=== PATIENT | male | born 1960 | race Caucasian/White ===

== ENCOUNTER 2019-08-04 07:55 | Inpatient (IN) ==
--- NOTE | 2019-06-26 16:07 | PAT Medication Instructions ---
Medication Instructions Date of Service June 26, 2019 Home Medications aspirin 81 mg PO QPM 06/26/19 [History Confirmed 06/26/19] cranberry conc-ascorbic acid 1 cap PO QAM 06/26/19 [History Confirmed 06/26/19] multivitamin 1 tab PO QAM 06/26/19 [History Confirmed 06/26/19] niacin [Niaspan Extended-Release] 500 mg PO HS 06/26/19 [History Confirmed 06/26/19] olmesartan-hydrochlorothiazide [Benicar HCT] 1 tab PO QAM 06/26/19 [History Confirmed 06/26/19] omega 3-uml-oyq-fish oil 1 cap PO BID 06/26/19 [History Confirmed 06/26/19] rabeprazole [AcipHex] 20 mg PO QAM 06/26/19 [History Confirmed 06/26/19] simvastatin 20 mg PO PM 06/26/19 [History Confirmed 06/26/19] STOP taking 2 weeks before surgery (or as soon as possible if surgery is within 2 weeks) cranberry conc-ascorbic acid 1 cap PO QAM 06/26/19 [History Confirmed 06/26/19] omega 1-vwj-fwi-fish oil 1 cap PO BID 06/26/19 [History Confirmed 06/26/19] STOP taking 48 hours before surgery niacin [Niaspan Extended-Release] 500 mg PO HS 06/26/19 [History Confirmed 06/26/19] DO NOT take the morning of surgery multivitamin 1 tab PO QAM 06/26/19 [History Confirmed 06/26/19] olmesartan-hydrochlorothiazide [Benicar HCT] 1 tab PO QAM 06/26/19 [History Confirmed 06/26/19] Take morning of surgery With a small sip of water, OTHERWISE NOTHING TO EAT OR DRINK AFTER MIDNIGHT: rabeprazole [AcipHex] 20 mg PO QAM 06/26/19 [History Confirmed 06/26/19] Take evening before surgery aspirin 81 mg PO QPM 06/26/19 [History Confirmed 06/26/19] simvastatin 20 mg PO PM 06/26/19 [History Confirmed 06/26/19] Other Notes If you have any questions please call us at [phone] or [phone] or [phone] or [phone]
--- NOTE | 2019-06-29 12:42 | Anesthesiology Consultation ---
Date of Service June 29, 2019 Assessment & Plan Chart Review Chart Review: Pending: Refer to Additional Notes / Consult section and Patient seen in Pre Admission Testing Consults Requested cardiac ASA ASA3 Proposed Anesthesia Anesthesia Type: MAC Spinal Regional Regional Laterality: Left Site: Adductor Canal History Surgery Operation Date: 08/04/19 12:30 Proposed Procedures p Left Total Knee Arthroplasty - Stone Tran MD Height/Weight Height: 5 ft 10 in Weight: 110 kg Allergies Allergy/AdvReac Type Severity Reaction Status Date / Time No Known Allergies Allergy Verified 06/26/19 08:20 Medications Home Medications Medication Instructions Recorded Confirmed Last Taken aspirin 81 mg PO QPM 06/26/19 06/26/19 Unknown cranberry conc-ascorbic acid 1 cap PO QAM 06/26/19 06/26/19 Unknown multivitamin 1 tab PO QAM 06/26/19 06/26/19 Unknown niacin [Niaspan Extended-Release] 500 mg PO HS 06/26/19 06/26/19 Unknown olmesartan-hydrochlorothiazide 1 tab PO QAM 06/26/19 06/26/19 Unknown [Benicar HCT] omega 6-htt-aoj-fish oil 1 cap PO BID 06/26/19 06/26/19 Unknown rabeprazole [AcipHex] 20 mg PO QAM 06/26/19 06/26/19 Unknown simvastatin 20 mg PO PM 06/26/19 06/26/19 Unknown Exercise / Class Metabolic Activity III < 4 Walking/Shop/Light housework Past Family History Family History Father Family history of diabetes mellitus Past Surgical History Surgical History History of cardiac cath early - [facility] - no stents/angioplasty - does not follow w/ cardio History of colonoscopy History of esophagogastroduodenoscopy (EGD) History of tonsillectomy History of tooth extraction History of umbilical hernia repair Past Anesthesia History No Hx of Anesthesia Complications and No Family Hx of Anesthesia Complications History of PONV No Hx of PONV and No Hx of Motion Sickness Social History Smoking Status: Never smoker Do You Dip or Chew Tobacco: No (quit 1993) Hx Alcohol Use: No Hx Substance Use: No substance use type: does not use Physical Exam Vital Signs Last Vital Signs Temp 36.6 C 06/29/19 12:19 Pulse 67 06/29/19 12:19 Resp 20 06/29/19 12:19 BP 113/71 06/29/19 12:19 Pulse Ox 96 06/29/19 12:19 Constitutional + obese ENMT Mouth: no dentition abnormality Thyromental Distance: > or= 3.5 Finger Breadths Mallampati Class: II Neck normal visual inspection, trachea midline and + facial hair; neck extension not limited Respiratory normal respiratory effort Auscultation: lungs clear to auscultation bilaterally Cardiovascular Rate/Rhythm: regular rate and regular rhythm Heart Sounds: no murmur Vessels: no carotid bruit Musculoskeletal Spine: normal cervical ROM Neurologic moves all extremities Motor/Sensory: no sensory deficit Psychiatric Orientation: alert and oriented x 3
--- NOTE | 2019-06-29 13:15 | XRay Report ---
XR chest Pre-admission PA/Lat CLINICAL HISTORY: 59 years-old Male presenting with preoperative assessment. TECHNIQUE: PA and lateral views of the chest were obtained. COMPARISON: None. FINDINGS: Atherosclerosis of the aortic arch. Cardiac silhouette normal in size. Lungs and pleural spaces clear . Degenerative changes of the thoracic spine. Upper abdomen normal. IMPRESSION: 1. No acute cardiopulmonary disease. Electronically signed by: Dharmesh Hagen M.D. 06/29/2019 1:14 PM
[2019-06-29 14:34] LABS: Basophils # (auto) 0.03 K/uL (0-0.2); Basophils % (auto) 0.4 %; Eosinophils # (auto) 0.14 K/uL (0-0.5); Eosinophils % (auto) 1.9 %; Hematocrit (blood only) 45.1 % (42-52); Hemoglobin 15.9 g/dL (14.0-18.0); Immature Granulocytes # (auto) 0.01 K/uL (0.00-0.02); Immature Granulocytes % (auto) 0.1 %; Lymphocytes # (auto) 2.69 K/uL (1.2-3.4); Mean Corpuscular Hemoglobin 32.4 pg (25-34); Mean Corpuscular Hgb Conc 35.3 g/dL (32-36); Mean Platelet Volume 9.8 fL (7.4-10.4); Monocytes # (auto) 0.75 K/uL (0.11-0.59); Monocytes % (auto) 10.3 %; Neutrophils # (auto) 3.66 K/uL (1.4-6.5); Neutrophils % (auto) 50.3 %; Platelet Count 251 K/uL (130-400); RDW Coefficient of Variation 13.2 % (11.5-14.5); RDW Standard Deviation 44.1 fL (36.4-46.3); White Blood Count 7.28 K/uL (4.8-10.8)
[2019-06-29 14:54] LABS: BUN Creatinine Ratio 17.6 (10-20); Calcium 9.7 mg/dl (8.5-10.1); Creatinine Clr Calc Pharmacy 91.2 ml/min; Est GFR (Non-African American) 73.3; Potassium 4.6 mmol/L (3.5-5.1)
[2019-06-29 14:58] LABS: Partial Thromboplastin Time 26.9 Seconds (21.0-31.0); Prothrombin Time 10.3 Seconds (9.0-12.0)
--- NOTE | 2019-08-01 13:11 | History and Physical Report ---
DATE OF ADMISSION: 08/04/2019 CHIEF COMPLAINT: Persistent left knee pain and discomfort. HISTORY OF PRESENT ILLNESS: The patient is a 59-year-old gentleman who presents for surgical treatment of his left knee. He reports a 30-year history of gradually increasing left knee pain and discomfort. He has been through extensive conservative treatment over the years. He has had multiple steroid shots and viscosupplementation and some type of denervation procedure, which all really has not helped that recently. He has undergone a significant weight loss as well. He went from 310 pounds to 220 pounds. Despite this, he continues to be limited by left knee pain and discomfort. It is global pain. The more he walks, the more it hurts. He limps more as the day goes on. He has nighttime pain. He would like to have his left knee fixed. PAST MEDICAL HISTORY: 1. ME in 1998 without residual symptoms. 2. Hypertension. 3. Elevated cholesterol. 4. Obesity with BMI of 35. 5. Hiatal hernia. 6. Gastroesophageal reflux disease. PREVIOUS SURGERIES: Include a hernia surgery in 2009. ALLERGIES: None. CURRENT MEDICINES: 1. Atorvastatin 20 mg. 2. Aciphex 20 mg. 3. Benicar/hydrochlorothiazide 40/12.5 once a day. 4. Niacin 500 mg a day. 5. Fish oil. 6. Cranberry. 7. Aspirin 81 mg. 8. Multivitamin. SOCIAL HISTORY: A 59-year-old gentleman. He lives in [place]. He is . He does not smoke. FAMILY HISTORY: Noncontributory. REVIEW OF SYSTEMS: Negative for diabetes, neurologic problem, vascular problems, bleeding disorders. Denies any chest pain or shortness of breath. No history of DVT or PE. He did have an intentional weight loss. PHYSICAL EXAMINATION: GENERAL: Shows a pleasant, middle-aged male. Looks to be in pretty good health. HEENT: Benign. NECK: Supple. No lymphadenopathy. LUNGS: Clear to auscultation. HEART: Regular rate and rhythm. ABDOMEN: Soft, nontender, nondistended. EXTREMITIES: Grossly neurovascularly intact except as follows. Examination of the left leg reveals the patient ambulates with varus alignment to his knee. He has got varus thrust with weightbearing. He has got a small knee effusion. His knee is pretty stiff with about 5-10 degree flexion contracture, can only flex to about 100 degrees. There is no gross instability. No pain with hip motion. X-RAYS: X-rays of the left knee reviewed. It shows advanced left knee DJD. He has got near complete loss of his medial joint space. He has got some tibial femoral subluxation. He has got an uneven surface to his distal femur. ASSESSMENT: A 59-year-old gentleman with a long history of left knee pain and discomfort, unresponsive to conservative treatment. His knee is pretty stiff. He would like to have his left knee fixed. PLAN: We will take him to the Operating Room and do a left total knee replacement. The risks and benefits of this procedure were explained to the patient including but not limited to DVT, PE, , infection, neurological injury, vascular injury, bleeding problem, pain, limited range of motion, stiffness, failure to relieve symptoms, incomplete relief of symptoms, need for further surgery in future, fracture, leg length inequality, nerve palsy and need for revision surgery. The patient understands and desires to proceed. Informed consent was obtained. As far as discharge plans, he is planning to be discharged to home using [facility].
[~2019-08-04 07:55] MED LIST: ACETAMINOPHEN 500 MG TAB PO SCH; BUPIVACAINE 0.25% 30 ML VIAL ONE; BUPIVACAINE 0.5 % 5 MG/1 ML PF 10ML VIAL ONE; BUPIVACAINE LIPOSOME/PF 266 MG, BUPIVACAINE/EPINEPHRINE 50 ML, SODIUM CHLORIDE 0.9% 30 ... INFIL SCH; CEFAZOLIN 2000MG 2,000 MG/15 ML SYR IV SCH; FAMOTIDINE 20 MG TAB PO SCH; GABAPENTIN 600 MG DOSE PO SCH; LR 500ML BOLUS, THEN 15ML/HR IV SCH; LR 60ML/HR IV SCH; METOCLOPRAMIDE HCL 10 MG TABLET PO SCH; SCOPOLAMINE 1.5 MG TDSY TD SCH; TRANEXAMIC ACID 1,000 MG **IV Intra-op IV SCH
--- NOTE | 2019-08-04 08:44 | History & Physical Bridge Note ---
Date of Service August 04, 2019 History & Physical Bridge Note I have examined the patient, reviewed the History & Physical and in the interval since the performance of the History & Physical I have noted the following changes of clinical significance: no changes noted
[2019-08-04] MEDS ORDERED: TRANEXAMIC ACID / 0.7% NACL 1000MG/100ML BAG IV ONE (09:02)
[2019-08-04] MEDS ORDERED: fentaNYL citrate 100 MCG/2 ML VIAL ONE (09:05)
[2019-08-04] MEDS ORDERED: MIDAZOLAM HCL 1 MG/ML 2ML VIAL ONE (09:05)
[2019-08-04] MEDS ORDERED: ePHEDrine sulfate 50 MG/ML AMP IV PRN (09:24)
[2019-08-04] MEDS ORDERED: ATROPINE SULFATE 0.1 MG/ML 10ML SYR IV PRN (09:24)
[2019-08-04] MEDS ORDERED: ONDANSETRON INJ 2 MG/ML 2 ML VIAL IV PRN ×2 (09:24→14:04)
[2019-08-04] MEDS ORDERED: EPINEPHrine INJ 1 MG/ML AMP ONE (11:00)
[2019-08-04] MEDS ORDERED: BACITRACIN INJ 50,000 UNIT VIAL ONE (11:00)
[2019-08-04] MEDS ORDERED: BUPIVACAINE 0.25% 30 ML VIAL ONE (11:00)
[2019-08-04] MEDS ORDERED: SODIUM CHLORIDE 0.9% PF 50 ML VIAL ONE (11:00)
[2019-08-04] MEDS ORDERED: BUPIVACAINE LIPOSOME 1.3% 266 MG/20 ML VIAL ONE (11:00)
[2019-08-04] MEDS ORDERED: PROPOFOL IV EMULSION 10 MG/ML 20 ML VIAL IV ONE ×2 (12:20→12:34)
[2019-08-04] MEDS ORDERED: LIDOCAINE HCL 2% 2 ML VIAL/AMP(20MG/ML) INFIL ONE (12:20)
--- NOTE | 2019-08-04 13:05 | Post Operative Brief Note ---
PG Immediate Post Op with CF Date of Surgery August 04, 2019 Pre & Post Diagnosis Operation Date: 08/04/19 10:40 Pre-Op Diagnosis: Left knee degenerative joint disease Post-Op Diagnosis: Left knee degenerative joint disease I identified the patient and participated in the time-out.: Yes Procedure Operation Date: 08/04/19 10:40 Actual Procedures p Left Total Knee Arthroplasty, Cemented(Left) - Stone Tran MD Surgeon Stone Tran MD Business Support Assistant Soy, PAC Estimated Blood Loss 50 Findings Consistent with Post-Op Diagnosis Fluids 1300 cc Specimens Specimen Description: Permanent Specimen A: Left knee bone and tissue Drains Palomino Catheter Anesthesia Type Spinal MAC Complications none Disposition Accompanied Patient To Recovery: No Disposition: Recovery Room
--- NOTE | 2019-08-04 14:00 | XRay Report ---
LEFT KNEE 2 VIEWS History: Left total knee arthroplasty. Degenerative arthritis. Postop. FINDINGS: The patient is status post a left total knee arthroplasty. The hardware is intact. No fract ure or dislocation. Skin hilaria are in place. IMPRESSION: Left total knee arthroplasty. No evidence for hardware complication. ACT 112: Negative or not required by law. Electronically signed by: Inder Goodwin M.D. 08/04/2019 1:58 PM
[2019-08-04] MEDS ORDERED: HYDROmorphone INJ 0.5 MG/0.5 ML SYR IV PRN (14:04)
[2019-08-04] MEDS ORDERED: MAGNESIUM HYDROXIDE SUSP 30 ML UDC PO PRN (14:04)
[2019-08-04] MEDS ORDERED: TAMSULOSIN HCL 0.4 MG CAP PO PRN (14:04)
[2019-08-04] MEDS ORDERED: NALOXONE HCL 0.4 MG/1 ML VIAL/CARP IV PRN (14:04)
[2019-08-04] MEDS ORDERED: bisacodyL 10 MG SUPP PR PRN (14:04)
[2019-08-04] MEDS ORDERED: METOCLOPRAMIDE HCL INJ 5 MG/ML 2 ML VIAL IV PRN (14:04)
--- NOTE | 2019-08-04 14:41 | Anesthesiology Progress Note ---
Date of Service August 04, 2019 Anesthesia Post Procedure Vital Signs Vital Signs: Temp Pulse Pulse Resp BP BP Pulse Ox 08/04/19 13:50 36.6 C 55 L 16 96/55 L 97 08/04/19 13:40 51 L 16 100/60 96 08/04/19 13:30 52 L 16 94/53 L 97 08/04/19 13:20 55 L 16 103/61 98 08/04/19 13:13 36.8 C 60 16 106/59 L 97 08/04/19 08:32 36.8 C 67 18 131/83 96 Transfer of Care Handoff Completed per policy Notes Mental Status: alert / awake / arousable and participated in evaluation Patient Amnestic to Procedure: Yes Nausea / Vomiting: adequately controlled Pain: adequately controlled Airway Patency, RR, SpO2: stable & adequate BP & HR: stable & adequate Hydration State: stable & adequate Neuraxial Anesthesia: was administered and sensory block is resolving Anesthetic Complications: no major complications apparent and Pt Satisfied with anesthetic care
[2019-08-04] MEDS: KETOROLAC 30 MG/ML VIAL IV SCH ×2 (16:00→21:13)
[2019-08-04] MEDS: CHECK SCOPOLAMINE PATCH PLACEMENT SCH ×2 (16:01→23:36)
[2019-08-04] MEDS: ACETAMINOPHEN 500 MG TAB PO SCH ×2 (16:01→23:36)
[2019-08-04] MEDS: SODIUM CHLORIDE 0.9% 1000ML 1,000 ML IV SCH ×2 (16:06→22:50)
[2019-08-04] MEDS ORDERED: TRANEXAMIC ACID / 0.7% NACL 1,000 MG/100 ML BAG IV SCH (18:30)
[2019-08-04] MEDS: ASCORBIC ACID 500 MG TAB PO SCH (18:52)
[2019-08-04] MEDS: FERROUS GLUCONATE 324 MG TAB PO SCH (18:52)
[2019-08-04] MEDS: CEFAZOLIN 2000MG 2,000 MG/15 ML SYR IV SCH (18:56)
[2019-08-04] MEDS: OXYCODONE HCL IR 5 MG TAB (IMMEDIATE RELEASE) PO PRN (21:13)
[2019-08-04] MEDS: ASPIRIN 81 MG ECTAB PO SCH (21:13)
[2019-08-04] MEDS: SENNA 8.6 MG TAB PO SCH (21:13)
[2019-08-04] MEDS: DOCUSATE SODIUM 100 MG CAP PO SCH (21:13)
[2019-08-04] MEDS: SIMVASTATIN 20 MG TAB PO SCH (21:13)
[2019-08-04] MEDS: NIACIN EXTENDED REL 500 MG TABCR PO SCH (21:13)
[2019-08-04] MEDS: OMEGA-3 (PURIFIED FISH OIL) 1 GM CAP PO SCH (21:13)
[2019-08-04] MEDS: TAPENTADOL HCL ER 50 MG TABCR PO SCH (21:13)
--- NOTE | 2019-08-04 21:19 | Progress Note ---
DATE: 08/04/2019 SUBJECTIVE: A 59-year-old gentleman postop from a left knee replacement. His legs are still numb. No complaints. No chest pain or shortness of breath. Not feeling dizzy or lightheaded. No pain yet. OBJECTIVE: VITAL SIGNS: Temperature 36.5. Vital signs stable. GENERAL: Physical examination shows a pleasant, middle-aged male. He is lying in bed, looks comfortable. LUNGS: Clear to auscultation. HEART: Regular rate and rhythm. ABDOMEN: Soft, nontender, nondistended. EXTREMITIES: Grossly neurovascularly intact except as follows: Examination of the left lower extremity reveals the leg to be well aligned. Dressing is clean, dry and intact. His toes are pink with brisk refill and good distal pulse. He has no significant sensory or motor function yet. X-RAYS: X-rays of the left knee from recovery room reviewed. It shows left cemented posterior stabilized total knee arthroplasty. Components looked to be in good position. No signs of problems. ASSESSMENT: A 59-year-old gentleman postop from a left knee replacement, doing well. His pain is controlled. Spinal still in effect. PLAN: 1. DVT prophylaxis including thigh-high TEDs, SCDs, and aspirin twice a day. 2. PT/OT. Weight bear as tolerated. Left total knee protocol. 3. Pain control: Doing well with current pain regimen. The spinal is still in effect. Will ask to adjust his medicines as his spinal wears off. 4. IV antibiotics x24 hours. 5. Disposition: Plan to discharge to home with some home health once medically stable and recovered.
--- NOTE | 2019-08-04 22:09 | Operative Report ---
Post Operative Report Pre & Post Diagnosis Operation Date: 08/04/19 10:40 Pre-Op Diagnosis: Left knee degenerative joint disease Post-Op Diagnosis: Left knee degenerative joint disease I identified the patient and participated in the time-out.: Yes Procedure Operation Date: 08/04/19 10:40 Actual Procedures p Left Total Knee Arthroplasty, Cemented(Left) - Stone Tran MD Surgeon Stone Tran MD Paper Production Engineer Soy, PAC Estimated Blood Loss 50 Findings Consistent with Post-Op Diagnosis Operative findings revealed advanced left knee DJD. The patient had extensive grade 4 [id number] disease of the medial femoral condyle medial tibial plateau with significant eburnation and grade 4 patellofemoral disease as well. He had a varus deformity to his knee with a large knee joint effusion. Fluids 1300 cc Specimens Left knee sent for pathology. Drains None. Anesthesia Type Spinal MAC Complications none Disposition Accompanied Patient To Recovery: No Disposition: Recovery Room Indications Patient is a 59-year-old gentleman is had a long history of left knee pain discomfort that he says dates back to 30 years ago. Been through extensive conservative treatment which became less successful over time. X-rays show good bands medial compartment disease with tibiofemoral subluxation. He did undergo a second weight loss program but continued be limited by his knee pain. He elected proceed with total knee arthroplasty. Description of Procedure Operative implants consisted of: 1. Biomet Vanguard size 65 left posterior stabilized femoral component. 2 Biomet size 71 tibial tray 3. 12 mm posterior stabilized polyethylene insert. 4. 31 x 8 all poly-patella. Patient was taken to the operating room identified and placed on the operating table supine position protectors were properly padded. IV antibiotics provided by anesthesia team. A spinal anesthetic and abductor canal block had provided in the holding area. Palomino catheter was placed in sterile fashion. A left eye turn was then placed in the left lower extremities and prepped and draped in usual sterile fashion. The left leg was elevated and exsanguinated with use of an Esmarch in terms placed at 300 mmHg. An anterior posterior left knee was then performed the longitudinal incision centered over the patella. Sharp dissection was cut through subcutaneous cyst download the extensor mechanism. Medial parapatellar arthrotomy incision was made. Some subperiosteal dissection was carried out medially. The fat pad was resected from each patella tendon. Lateral patellofemoral ligament was released. Patella was subluxated lateral and the knee was flexed. The osteophytes were taken off the distal femur. The ACL PCL were then released from the distal femur the tibia subluxated anteriorly. The external tibial alignment jig was then placed in the interface the tibia and adjusted 14 mm medially. Proximal tibial cut was made to remove about a millimeter or 2 of bone from the most efficient aspect the medial tibial plateau. Tibia was then sized to a size 71. Attention drawn the femur. The distal femur was entered with a sharp drill. The intramedullary canal was suction. A left 6 degree valgus cutting guide was placed. Distal femoral cutting block was pinned in place. Distal femoral cut was made to take an additional 3 mm of bone off the distal femur. The femur was then sized to a size 65. The AP cutting block was pinned parallel to the epicondylar axis which was 5 degrees of external rotation. The anterior cut, anterior chamfer, posterior cut, posterior chamfer cuts were made. Box cutting guide was placed and just slightly lateral and the box cut was made. The knee was flexed for the remnants of the medial lateral menisci were excised. The osteophytes were taken off the posterior aspect the femur. A trial femoral component was placed but the tibial tray was pinned in maximum external rotation and the drill and stem punch were used to create defect in the proximal tib-fib tibial tray. The knee was then trialed and the 12 mm insert fit most appropriately. Attention drawn the patella. The patella was cleaned of all soft tissues. Patella thickness measured 18 mm in thickness was cut down to 12. Was sized to a size 31 patella. Locals were drilled for 31 patella. The lateral osteophyte was removed. Patella button was placed. Knee was taken through range of motion patella tracked nicely with no thumbs test. Attention turned to placing the permanent components. All trial components were removed. Bone plug was placed in the disc femur limit blood loss. A double batch Palacos G cement was mixed. BiomNolioguard size 65 left posterior bifemoral component, a size 71 tibial tray, 12 mm posterior box polyethylene insert, 31 x 8 all poly-patella were then cemented in place. The knee was brought out into full extension until cement hardened. Final cement check was then performed performed. The pericapsular tissues were injected with total 100 cc of combination of 20 cc of Exparel, 30 cc normal saline, 50 cc of quarter percent Marcaine with epinephrine. Patient did receive 1 g of tranexamic acid. The tourniquet was then let down for final tourniquet time of 61 minutes but hemostasis assured with electrocautery. The extensor mechanism closed with combination 1 PDS suture and #1 Vicryl suture in [id number] fashion for extensor mechanism checked found to be intact the subcutaneous tissue then closed with 2 Dexon suture in a buried interrupted fashion skin was closed skin hilaria. Leg was then cleaned dried a sterile dressing composed of Xeroform, 4 x 4's, sterile cast padding, Emeka bandage were applied. The patient was then transferred to the recovery room in stable condition. Patient tolerated procedure well no complications. I attest to the content of the Intraoperative Record and any orders documented therein. Any exceptions are noted below.
[2019-08-05] MEDS: KETOROLAC 30 MG/ML VIAL IV SCH ×4 (03:05→20:30)
[2019-08-05] MEDS: CEFAZOLIN 2000MG 2,000 MG/15 ML SYR IV SCH (03:05)
[2019-08-05] MEDS: SODIUM CHLORIDE 0.9% 1000ML 1,000 ML IV SCH (03:26)
[2019-08-05] MEDS: OXYCODONE HCL IR 5 MG TAB (IMMEDIATE RELEASE) PO PRN ×2 (05:52→09:32)
[2019-08-05 06:09] LABS: Hematocrit (blood only) 40.2 % (42-52); Hemoglobin 13.9 g/dL (14.0-18.0); Mean Corpuscular Hemoglobin 32.3 pg (25-34); Mean Corpuscular Hgb Conc 34.6 g/dL (32-36); Mean Corpuscular Volume 93.5 fL (80-100); Mean Platelet Volume 9.5 fL (7.4-10.4); Platelet Count 200 K/uL (130-400); RDW Coefficient of Variation 13.1 % (11.5-14.5); RDW Standard Deviation 44.5 fL (36.4-46.3)
[2019-08-05 06:51] LABS: BUN Creatinine Ratio 13.7 (10-20); Calcium 8.3 mg/dl (8.5-10.1); Est GFR (African American) 76.6; Est GFR (Non-African American) 66.1; Potassium 4.2 mmol/L (3.5-5.1)
[2019-08-05] MEDS: ASPIRIN 81 MG ECTAB PO SCH ×2 (07:56→20:25)
[2019-08-05] MEDS: FERROUS GLUCONATE 324 MG TAB PO SCH ×2 (07:56→17:53)
[2019-08-05] MEDS: MULTIVITAMIN TAB PO SCH (07:56)
[2019-08-05] MEDS: PANTOprazole 40 MG TAB PO SCH (07:56)
[2019-08-05] MEDS: OMEGA-3 (PURIFIED FISH OIL) 1 GM CAP PO SCH ×2 (07:56→20:24)
[2019-08-05] MEDS: DOCUSATE SODIUM 100 MG CAP PO SCH ×2 (07:56→20:26)
[2019-08-05] MEDS: ASCORBIC ACID 500 MG TAB PO SCH ×2 (07:56→17:54)
[2019-08-05] MEDS: hydroCHLOROthiazide 25 MG TAB PO SCH (08:00)
[2019-08-05] MEDS: OLMESARTAN MEDOXOMIL 40 MG TAB PO SCH (08:00)
[2019-08-05] MEDS: ACETAMINOPHEN 500 MG TAB PO SCH ×2 (08:00→16:08)
[2019-08-05] MEDS: TAPENTADOL HCL ER 50 MG TABCR PO SCH ×2 (08:08→20:30)
[2019-08-05] MEDS ORDERED: MULTIVITAMIN TAB PO SCH (09:00)
[2019-08-05] MEDS ORDERED: NON-FORMULARY MEDICATION (Cranberry Conc-Ascorbic Acid 1 CAP) PO SCH (09:00)
--- NOTE | 2019-08-05 15:25 | Progress Note ---
DATE: 08/05/2019 SUBJECTIVE: 59-year-old gentleman postop day 1 from a left knee replacement, doing pretty well. Pain is controlled. Therapy went pretty well. No chest pain or shortness of breath. Not feeling dizzy or lightheaded. OBJECTIVE: VITAL SIGNS: Temperature 36.7. Vital signs are stable. He is bradycardic in the 50s. PHYSICAL EXAMINATION: GENERAL: Reveals a pleasant, middle-aged male. He is sitting up in bed, looks pretty comfortable. EXTREMITIES: Examination of the left leg reveals the dressing to be clean, dry, and intact. He can dorsiflex and plantarflex his foot appropriately. He is neurologically intact. LABORATORY DATA: Hemoglobin 13.9. Hematocrit 40.2. Electrolytes are stable. ASSESSMENT: 59-year-old gentleman postop day 1 from left knee replacement, doing pretty well. Pain is controlled. He is neurologically intact. PLAN: 1. DVT prophylaxis including thigh-high TEDs, SCDs, and aspirin twice a day. 2. PT/OT. Weight bear as tolerated. Left total knee protocol. 3. Pain control, doing pretty well with current pain regimen. 4. Disposition: Plan to discharge to home with some home health once adequately recovered and medically stable.
[2019-08-05] MEDS: SENNA 8.6 MG TAB PO SCH (20:25)
[2019-08-05] MEDS: NIACIN EXTENDED REL 500 MG TABCR PO SCH (20:25)
[2019-08-05] MEDS: SIMVASTATIN 20 MG TAB PO SCH (20:26)
[2019-08-06] MEDS: ACETAMINOPHEN 500 MG TAB PO SCH ×2 (00:14→07:40)
[2019-08-06] MEDS: KETOROLAC 30 MG/ML VIAL IV SCH ×2 (03:31→07:43)
[2019-08-06 06:08] VITALS: TEMP 97.9
[2019-08-06 07:03] VITALS: BP 110/68; PULSE 65; O2SAT 97
[2019-08-06] MEDS: ASPIRIN 81 MG ECTAB PO SCH (07:40)
[2019-08-06] MEDS: hydroCHLOROthiazide 25 MG TAB PO SCH (07:40)
[2019-08-06] MEDS: OMEGA-3 (PURIFIED FISH OIL) 1 GM CAP PO SCH (07:40)
[2019-08-06] MEDS: ASCORBIC ACID 500 MG TAB PO SCH (07:40)
[2019-08-06] MEDS: FERROUS GLUCONATE 324 MG TAB PO SCH (07:41)
[2019-08-06] MEDS: OLMESARTAN MEDOXOMIL 40 MG TAB PO SCH (07:41)
[2019-08-06] MEDS: PANTOprazole 40 MG TAB PO SCH (07:41)
[2019-08-06] MEDS: MULTIVITAMIN TAB PO SCH (07:41)
[2019-08-06] MEDS: TAPENTADOL HCL ER 50 MG TABCR PO SCH (07:45)
[2019-08-06] MEDS: DOCUSATE SODIUM 100 MG CAP PO SCH (07:46)
--- NOTE | 2019-08-06 07:50 | Progress Note ---
DATE: 08/06/2019 SUBJECTIVE: A 59-year-old gentleman postop day 2 from a left knee replacement. He is doing well. Pain is controlled. Therapy is going well. No chest pain or shortness of breath. Not feeling dizzy or lightheaded. OBJECTIVE: VITAL SIGNS: Temperature 36.6. Vital signs stable. EXTREMITIES: Examination of the left leg reveals the dressing to be clean, dry, and intact. He can do a straight leg raise. He can dorsiflex and plantarflex his foot appropriately. He is neurologically intact. ASSESSMENT: A 59-year-old gentleman postop day 2 from left knee replacement, doing well. His pain is controlled. He is neurologically intact. PLAN: 1. DVT prophylaxis including thigh-high TEDs, SCDs, and aspirin twice a day. 2. PT/OT. Weight bear as tolerated. Left total knee protocol. 3. Pain control, doing pretty well with current pain regimen. 4. Disposition: Plan to discharge to home with some home health later today.
--- NOTE | 2019-08-11 09:34 | Discharge Summary ---
DATE OF ADMISSION: 08/04/2019 DATE OF DISCHARGE: 08/06/2019 ADMITTING PHYSICIAN AND SURGEON: Dr. Stone Tran. ADMITTING DIAGNOSIS: Left knee degenerative joint disease. SURGERY PERFORMED: Left total knee arthroplasty. SECONDARY DIAGNOSES: History of myocardial infarction, hypertension, elevated cholesterol, obesity, hiatal hernia, gastroesophageal reflux disease. CONSULTS: None obtained. HISTORY AND PHYSICAL EXAMINATION: Well documented in the patient's chart. HOSPITAL COURSE: The patient was admitted on 08/04/2019, underwent total knee arthroplasty, tolerated the procedure well. There were no complications. He was transferred to the PACU postoperatively and later to the orthopedic floor for further care. He was given Ancef for antibiotic prophylaxis, LAISHA stockings, SCDs and aspirin for DVT prophylaxis. Hemoglobin, hematocrit and vital signs were monitored during his hospital stay and remained stable, did not require any blood transfusions. There were no complications. By postoperative day 2, he was tolerating a regular diet, pain was controlled with oral pain medicine. He was participating in physical therapy. On postop day 2, he was discharged home, set up with home health services. He was given printed discharge instructions as well as new prescriptions for extra strength Tylenol, aspirin and oxycodone. Continue his home medicines. Continue physical therapy, weightbearing as tolerated, LAISHA stockings. Follow up approximately 2 weeks postop or sooner if there are any problems or concerns.
== END 2019-08-06 09:52 | disposition home health service (06) | DRG 470 ==
LOC: ASU 07:55 → 3E 13:08